=== PATIENT | female | born 1970 | race Caucasian/White ===

== ENCOUNTER 2017-12-17 09:49 | Outpatient (CLI) | payer OTHER | END 2017-12-17 09:50 | disposition home or self-care (01) | LOC: BICMAMMO 09:49 | PROVIDERS: ATTEND Obstetrics & Gynecology | DX: Z12.31 Encounter for screening mammogram for malignant neoplasm of breast (principal); Z85.51 Personal history of malignant neoplasm of bladder | CPT/HCPCS: 77063; 77067 ==

== ENCOUNTER 2018-04-24 11:29 | Outpatient (CLI) | payer OTHER | END 2018-04-24 11:30 | disposition home or self-care (01) | LOC: BICRAD 11:29 | PROVIDERS: ATTEND Urology | DX: N20.0 Calculus of kidney (principal); R35.0 Frequency of micturition; C67.9 Malignant neoplasm of bladder, unspecified | CPT/HCPCS: 36415; 74018; 80048; 81001; 87086 ==

== ENCOUNTER 2018-08-12 15:10 | Outpatient (CLI) | payer OTHER ==
[2018-08-12 16:17] LABS: Hemoglobin 13.5 g/dL (12.0-16.0); Mean Corpuscular HGB CONC 32.5 g/dL (32.0-36.0); Mean Corpuscular Hemoglobin 30.3 pg (27.0-31.0); Mean Platelet Volume 8.2 fL (7.4-10.4); Platelet Count 255 thou/uL (130-400); RBC Distribution Width 11.1 % (11.5-14.5); Red Blood Cell (RBC) Count 4.45 mill/uL (4.20-5.40); White Blood Cell (WBC) Count 5.3 thou/uL (4.8-10.8)
[2018-08-12 16:19] LABS: Bilirubin Negative (Negative); Blood, Urine Small (Negative); Clarity CLEAR (Clear); Glucose, Urine (Dipstick) Negative (Negative); Leukocyte Trace (Negative); Nitrite Negative (Negative); Protein, Urine (Dipstick) Negative (Neg-Trace); Urobilinogen 0.2 mg/dL (0.2-1.0); pH, Urine 7.5 (5.0-9.0)
[2018-08-12 16:22] LABS: Bacteria/HPF None Seen HPF (None Seen); Hyaline Casts/LPF 0-3 HYALINE CAST LPF (0-3 Hyaline); Pathc Cast-AUWi Flag 0.14 (0-2.49); Squamous Epithelial None Seen HPF (0-3); WBC/HPF 0-3 HPF (0-3)
[2018-08-12 16:23] LABS: Specific Gravity, Urine 1.004 (1.002-1.036)
[2018-08-12 16:41] LABS: Anion Gap 11 mmol/L (10-20); BHCG - Serum Negative (NEGATIVE); BUN (Urea Nitrogen) 11 mg/dL (7.0-18.7); Calc. Creatinine Clearance 0 mL/min (70-130); Calcium 9.4 mg/dL (7.8-10.44); Carbon Dioxide 25 mmol/L (22-29); Chloride 108 mmol/L (98-107); Estimated GFR-MDRD Greater than 90; Glucose 89 mg/dL (70-105); Pregs Control Background? CLEAR/WHITE (CLR/WHITE); Pregs Control Bar Appear? YES (CONTROL BAR); Sodium 140 mmol/L (136-145)
[2018-08-12 16:43] LABS: Prothrombin Time 12.9 SEC (12.0-14.7)
[2018-08-12 16:44] LABS: PTT 27.6 SEC (22.9-36.1)
--- NOTE | 2018-08-13 12:37 | EKG ---
Test Reason : Blood Pressure : / mmHG Vent. Rate : 067 BPM Atrial Rate : 067 BPM P-R Int : 124 ms QRS Dur : 074 ms QT Int : 404 ms P-R-T Axes : 078 081 085 degrees QTc Int : 426 ms Normal sinus rhythm Cannot rule out Anterior infarct , age undetermined Abnormal ECG When compared with ECG of 30-JUL-2016 17:56, No significant change was found Confirmed by DR. Luzma MEEHAN ([id number]) on 08/13/2018 12:37:16 PM Referred By: REGAN Confirmed By:DR. Luzma MEEHAN
== END 2018-08-12 15:11 | disposition home or self-care (01) ==
LOC: LABBT 15:10
PROVIDERS: ATTEND Urology
DX: Z01.818 Encounter for other preprocedural examination (principal); N20.0 Calculus of kidney; R94.31 Abnormal electrocardiogram [ECG] [EKG]
CPT/HCPCS: 80048; 81001; 84703; 85027; 85610; 85730; 87086; 93005; 93010

== ENCOUNTER 2018-08-14 12:29 | Outpatient (CLI) | payer OTHER ==
--- NOTE | 2018-08-14 15:01 | CT ---
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 History of prior appen dectomy. This is a CT urogram with and without contrast with multiphase imaging. COMPARISON: 04/12/17. FINDINGS: Visualized lung bases are clear. The liver, gallbladder, pancreas, spleen, and adrenal glands are unremarkable. Several small, nonobst ructing bilateral renal calculi. No evidence for acute obstruction. Normal appearing urinary bladd er. No evidence of residual or recurrent urinary bladder mass. No evidence for pelvic abscess or cha opathy, or significant abnormal fluid collection. IMPRESSION: Multiple nonobstructing bilateral renal calculi. No evidence for acute obstruction. Unremarkable a ppearing urinary bladder. No evidence of residual or recurrent tumor mass. No evidence of adenopathy. No metastasis. POS: [facility]
[2018-08-14] MEDS ORDERED: ISOVUE-370 76%-LOCM 1 ML ONE (16:21)
== END 2018-08-14 12:30 | disposition home or self-care (01) ==
LOC: BICCT 12:29
PROVIDERS: ATTEND Urology
DX: C67.9 Malignant neoplasm of bladder, unspecified (principal); N20.0 Calculus of kidney
CPT/HCPCS: 74178

== ENCOUNTER 2018-08-25 06:42 | Day surgery (SDC) | payer OTHER ==
[2018-08-12 15:29] VITALS: BMI 23.6
[2018-08-25] MEDS ORDERED: Levofloxacin 500 mg/D5W 100 ml Premix Bag ONE (07:15)
[2018-08-25] MEDS ORDERED: Iothalamate Meglumine 60% 50 ML VIAL FS ONE (09:19)
[2018-08-25] MEDS ORDERED: Fentanyl 100 MCG/2 ML VIAL ONE ×2 (09:23→11:34)
--- NOTE | 2018-08-25 11:37 | OP ---
PRIMARY CARE PHYSICIAN: Richard Henderson MD PREOPERATIVE DIAGNOSES: 1. 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 2. History of BCG. 3. Recent cystoscopy negative, cytology positive. Restaging CT hematuria protocol unremarkable. 4. History of bilateral nonobstructing punctate renal lithiasis, left greater than right. POSTOPERATIVE DIAGNOSES: 1. 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 2. History of BCG. 3. Recent cystoscopy negative, cytology positive. Restaging CT hematuria protocol unremarkable. 4. History of bilateral nonobstructing punctate renal lithiasis, left greater than right. PROCEDURES PERFORMED: Cystoscopy; bilateral retrograde pyelogram; bilateral dilation of the intramur al ureter; bilateral ureteroscopy, pyeloscopy, diagnostic; left laser lithotripsy of renal calculi; r andom bladder biopsy; fulguration of biopsy sites. SURGEON: Elissa Scanlon D.O. ANESTHESIA: General. COMPLICATIONS: None apparent. DISPOSITION: To recovery room in stable condition. SPECIMEN: Random bladder biopsy: Left lateral previous TUR site, random bladder biopsy of the left lateral, mi d posterior, right lateral. INTRAOPERATIVE FINDINGS: 1. No cystoscopic evidence of bladder tumor recurrence. 2. Bilateral Corbin plaque consistent with recurrent stones, left punctate renal lithiasis, left st one nidus in the mid lower pole measuring approximately 2-3 mm. INDICATIONS FOR THE PROCEDURE AND HISTORY: Ms. Rea is a pleasant 47-year-old female with histor y of low-grade superficial T1 TCC of the left lateral wall, status post transurethral resection bladd er tumor. She has been undergoing maintenance BCG with no cystoscopic evidence of recurrent bladder cancer. She recently underwent local diagnostic cystoscopy on August 08, demonstrating unremarkable findings, however, FISH cytology positive. Therefore, a restaging CT hematuria protocol obtained wh [facility] demonstrates no evidence of filling defect, hydronephrosis or lesion of concern. She presents to [facility] for diagnostic bilateral pyeloscopy random bladder biopsy. She has concomitant tiny kidney stone s. We also discussed options of laser lithotripsy if it is amendable and she desires to proceed. Ri sks and complications including, but not limited to, bleeding, pain, infection, injury to adjacent or sonja, urosepsis, stricture formation, PE, DVT, perioperative morbidity and mortality. All questions were answered to her satisfaction, and she desired to proceed without reservation. DESCRIPTION OF THE PROCEDURE: After an informed consent is signed, [facility], placed in a dorsal lithotomy position with the genital area prepped and draped in the usual s urgical sterile fashion. Bilateral SARITHA hose, SCDs, and broad-spectrum antibiotics were provided. A 21-Moldovan cystoscope was utilized for cystoscopy which demonstrated normal urethra. Bladder was ente red which demonstrated again no evidence of visible tumor recurrence. Cystoscopy was performed with a 30 and a 70-degree lens. At this time, we performed a left retrograde pyelogram first. This demon strated no evidence of filling defect or hydronephrosis. Using a [employer] balloon dilator 4 cm 12 Moldovan, we dilated the intramural ureter uneventfully. A 10-Moldovan dual-lumen access sheath w as then utilized to intubate the left ureter to the level of the proximal region. A second safety wi re, 0.35 Super Stiff was then passed. A digital disposable flexible ureteroscope was then advanced o sidney the working Super Stiff wire to the level of the renal pelvis uneventfully. We surveyed the jr ecting system which demonstrated no evidence of any papillary lesions of concern along the ureter. N o other calices. Each calyces were evaluated. There were multiple areas of Corbin plaques. There are multiple punctate renal lithiasis in the mid to lower pole based on the renal papilla. There wer e two stones in the mid lower pole approximately 2-3 mm, which were stuck to the renal papilla. This was rendered laser free with 200 micron laser fiber and laser lithotripsy. They fragmented a couple of tiny pieces. They were too small to basket. More over in the lower angle, the angle was difficu lt to engage for basket extract. Moreover, the stones were small. Therefore, left in situ. We surv eyed the rest of the collecting system carefully again demonstrating no evidence of lesion of concern . Nothing to be biopsied. The ureter was surveyed repeatedly again demonstrating no lesion, no ston e of concern or trauma. At this time, we passed a 6 x 28 double-J ureteral stent after the safety wi re was removed. The stent was confirmed to be in good position. We then repeated this on the right side, she did not have stones amendable to be treated. Therefore, no laser lithotripsy in the right renal collecting system was performed a diagnostic ureteroscopy, pyeloscopy after balloon dilatation of the right distal intramural ureter was performed in a similar fashion. This again demonstrated no evidence of lesion of concern. A 6 x 28 double-J ureteral stent was placed in the right side. Blad barb was completely emptied. I again staged the bladder. With the stent in situ, we performed random bladder biopsy. She does have a previous TUR site at the left lateral wall with no visible recurren ce. The bed of the tumor was biopsied. Then, we performed 3 random bladder biopsies, left lateral, mid posterior, right lateral. Biopsy was performed with endoscopic biopsy cup, using an endoscopic B ugbee, we cauterized the bed of the lesion with good hemostasis. She tolerated the procedure well. No Beal was left in situ. She tolerated the procedure well and transported to the recovery room in stable condition. She will see me next for cystoscopy stent pull and review of pathology. If biopsy negative, she will resume her maintenance BCG. She is discharged with ciprofloxacin for 5 days, one to be taken prior to her stent pull, Rhonda [place] 5/325 #30, AZO p.r.n., Ditropan 10 mg XL one p.o. daily #20. Appointment provided for September 04, at 8:00 a.m.
[2018-08-25] MEDS ORDERED: Phenazopyridine HCl 97.5 MG TABLET ONE (11:43)
[2018-08-25] MEDS ORDERED: Oxybutynin 5 MG TAB ONE (11:43)
[2018-08-25] MEDS ORDERED: Promethazine HCl 25 MG/ML VIAL ONE (12:42)
--- NOTE | 2018-08-25 13:11 | RAD ---
RETROGRADE IVP: HISTORY: Renals tone. COMPARISON: 08/13/2016 FINDINGS: Fluoroscopy was provided for Dr. Scanlon. A total of 6 fluoroscopic images demonstrate retrograd e opacification of a left to right intrarenal collecting system. No filling defects. Bilateral uret eral stents are placed. IMPRESSION: Fluoroscopy as above. POS: [facility]
[2018-08-25] MEDS ORDERED: Dexamethasone 20 MG/5 ML VIAL ONE (15:07)
[2018-08-25] MEDS ORDERED: PROPOFOL 200 MG/20 ML VIAL ONE (15:07)
[2018-08-25] MEDS ORDERED: Glycopyrrolate 0.2 MG/ML 5 ML SYRINGE ONE (15:07)
[2018-08-25] MEDS ORDERED: Metoclopramide HCl 10 MG/2 ML VIAL ONE (15:07)
[2018-08-25] MEDS ORDERED: Lidocaine 1% PF 5 ML VIAL ONE (15:07)
[2018-08-25] MEDS ORDERED: Ondansetron PF 4 MG/2 ML Vial ONE (15:07)
== END 2018-08-25 14:11 | disposition home or self-care (01) ==
LOC: SDC 06:42
PROVIDERS: ATTEND Urology
PROC: 0T788DZ Dilation of Bilateral Ureters with Intraluminal Device, Via Natural or Artificial Opening Endoscopic (ICD-10-PCS; principal; 2018-08-25)
PROC: 0TBB8ZX Excision of Bladder, Via Natural or Artificial Opening Endoscopic, Diagnostic (ICD-10-PCS; principal; 2018-08-25)
PROC: 0TF48ZZ Fragmentation in Left Kidney Pelvis, Via Natural or Artificial Opening Endoscopic (ICD-10-PCS; principal; 2018-08-25)
DX: N20.0 Calculus of kidney (principal); N30.20 Other chronic cystitis without hematuria; G43.909 Migraine, unspecified, not intractable, without status migrainosus; Z85.51 Personal history of malignant neoplasm of bladder; Z79.899 Other long term (current) drug therapy; Z88.6 Allergy status to analgesic agent; Z88.8 Allergy status to other drugs, medicaments and biological substances; Z91.048 Other nonmedicinal substance allergy status
CPT/HCPCS: 74420; 88305; 96374; C1758; C1769; J1100; J1956; J2001; J2405; J2550; J2704; J2765; J3010; Q9961

== ENCOUNTER 2018-12-18 08:48 | Outpatient (CLI) | payer OTHER ==
--- NOTE | 2018-12-18 18:22 | MMO ---
Bilateral MAMMO Bilat Screen DDI+DONN. CLINICAL HISTORY: Patient is 48 years old and is seen for screening. The patient has no family history of breast cancer. The patient has a history of bladder cancer in May,. VIEWS: The views performed were: bilateral craniocaudal with tomosynthesis and bilateral mediolateral oblique with tomosynthesis. FILMS COMPARED: The present examination has been compared to prior imaging studies performed at [facility] on 08/05/2009, 10/27/2015, 11/15/2016 and 12/17/2017. MAMMOGRAM FINDINGS: The breasts are heterogeneously dense, which could obscure a lesion on mammography. There are no suspicious masses, calcifications or areas of architectural distortion. IMPRESSION: THERE IS NO MAMMOGRAPHIC EVIDENCE OF MALIGNANCY. A ROUTINE FOLLOW-UP MAMMOGRAM IN 1 YEAR IS RECOMMENDED. THE RESULTS OF THIS EXAM WERE SENT TO THE PATIENT. ACR BI-RADS Category 1 - Negative MAMMOGRAPHY NOTE: 1. A negative mammogram report should not delay a biopsy if a dominant of clinically suspicious mass is present. 2. Approximately 10% to 15% of breast cancers are not detected by mammography. 3. Adenosis and dense breasts may obscure an underlying neoplasm.
== END 2018-12-18 08:49 | disposition home or self-care (01) ==
LOC: BICMAMMO 08:48
PROVIDERS: ATTEND Obstetrics & Gynecology
DX: Z12.31 Encounter for screening mammogram for malignant neoplasm of breast (principal); Z85.51 Personal history of malignant neoplasm of bladder
CPT/HCPCS: 77063; 77067

== ENCOUNTER 2019-05-07 10:01 | Outpatient (CLI) | payer OTHER ==
--- NOTE | 2019-05-07 12:38 | RAD ---
KUB: Comparison: None. History: Renal stone, bladder cancer. FINDINGS: Single view of the abdomen shows a nonspecific, nonobstructed bowel gas pattern. No calcifications ar e seen projecting over the right renal shadow. There is a tiny 1-2 mm calculus projecting over the lo wer pole of the left kidney. No calcifications are seen along the course of the ureters. IMPRESSION: Very small left renal calcification. POS: [facility]
== END 2019-05-07 10:02 | disposition home or self-care (01) ==
LOC: RAD 10:01
PROVIDERS: ATTEND Urology
DX: N20.0 Calculus of kidney (principal); N28.89 Other specified disorders of kidney and ureter; C67.9 Malignant neoplasm of bladder, unspecified; R35.0 Frequency of micturition
CPT/HCPCS: 36415; 74018; 80048; 81001; 87086; 88121

== ENCOUNTER 2019-05-20 14:40 | Outpatient (CLI) | payer OTHER ==
--- NOTE | 2019-05-20 15:50 | CT ---
CT ABDOMEN AND PELVIS WITH AND WITHOUT IV CONTRAST 05/20/2019 CLINICAL INFORMATION: Transitional cell cancer urinary bladder. History of prior surgery. COMPARISON: 08/14/2018 Technique: Multiple contiguous axial CT images are obtained through the abdomen and pelvis with IV contrast. Cor onal reformatted images are provided. FINDINGS: Lower Chest: Dependent atelectasis. No pulmonary nodule, mass, or pleural effusion is seen in either lung base. Vessels: Abdominal aorta is normal in caliber. Incidental note is made of a retroaortic left renal ve in. Abdomen: Portal vein:Patent Gallbladder: Within normal limits for CT imaging. Liver: within normal limits. Spleen: within normal limits. Pancreas: within normal limits. Adrenals: within normal limits. Kidneys: Punctate nonobstructing bilateral renal calculi are seen larger in size on the left measurin g up to 3 mm. There is no hydronephrosis, and no enhancing renal mass is identified. No obvious filling defect is seen within the renal collecting systems. The segmentally visualized opacified uret ers also demonstrate no filling defect. Bowel: Normal caliber. Appendix: Not definitely visualized. Peritoneum: No ascites or free air; no fluid collection. Mesentery and Retroperitoneum: No enlarged mesenteric or retroperitoneal lymph nodes. Abdominal Wall: Tiny fat-containing umbilical hernia is present. Pelvis: Reproductive Organs: No pelvic masses. Pelvis within normal limits. Bladder: within normal limits. Bones: within normal limits. IMPRESSION: 1. Nonobstructing bilateral renal calculi stable from prior study. 2. No CT findings to suggest metastatic disease. 3. No acute findings are seen in the abdomen or pelvis.
== END 2019-05-20 14:41 | disposition home or self-care (01) ==
LOC: BICCT 14:40
PROVIDERS: ATTEND Urology
DX: C67.9 Malignant neoplasm of bladder, unspecified (principal); N20.0 Calculus of kidney
CPT/HCPCS: 74178

== ENCOUNTER 2021-10-09 07:52 | Outpatient (CLI) | payer BC | END 2021-10-09 07:53 | disposition home or self-care (01) | LOC: BICCT 07:52 | PROVIDERS: ATTEND Urology | DX: C67.9 Malignant neoplasm of bladder, unspecified (principal); N20.0 Calculus of kidney | CPT/HCPCS: 74178 ==

== ENCOUNTER 2021-10-27 16:42 | Outpatient (CLI) | payer BC ==
[2021-10-27 18:15] LABS: Hemoglobin 13.3 g/dL (12.0-15.5); Mean Corpuscular HGB CONC 32.9 g/dL (32.0-36.0); Mean Corpuscular Hemoglobin 30.2 pg (27.0-33.0); Mean Corpuscular Volume 91.8 fl (81.6-98.3); Mean Platelet Volume 11.5 fl (7.4-10.4); Platelet Count 322 10x3/uL (150-450); RBC Distribution Width 12.6 % (11.5-14.5); White Blood Cell (WBC) Count 7.2 10x3/uL (3.5-10.5)
[2021-10-27 18:32] LABS: INR-International Normal Ratio 0.9; PTT 24.8 sec (22.0-33.0); Prothrombin Time 9.9 sec (9.5-12.1)
[2021-10-27 18:38] LABS: Anion Gap 17 mmol/L (10-20); BUN (Urea Nitrogen) 11 mg/dL (7.0-18.7); Calc. Creatinine Clearance 0 mL/min (70-130); Calcium 9.4 mg/dL (7.8-10.44); Carbon Dioxide 22 mmol/L (22-29); Chloride 106 mmol/L (98-107); Glucose 72 mg/dL (70-105); Potassium 3.5 mmol/L (3.5-5.1); Sodium 141 mmol/L (136-145)
[2021-10-28 18:33] LABS: SARS-CoV-2 PCR by NAA DETECTED (NotDetected)
== END 2021-10-27 16:43 | disposition home or self-care (01) ==
LOC: LABBT 16:42
PROVIDERS: ATTEND Urology
DX: U07.1 COVID-19 (principal); Z01.818 Encounter for other preprocedural examination
CPT/HCPCS: 80048; 85027; 85610; 85730; 93005; 93010; U0003; U0005

== ENCOUNTER 2021-12-08 16:49 | Outpatient (CLI) | payer BC ==
[2021-12-08 18:35] LABS: Hemoglobin 13.5 g/dL (12.0-15.5); Mean Corpuscular HGB CONC 31.9 g/dL (32.0-36.0); Mean Corpuscular Hemoglobin 30.1 pg (27.0-33.0); Mean Corpuscular Volume 94.2 fl (81.6-98.3); Mean Platelet Volume 11.8 fl (7.4-10.4); Platelet Count 299 10x3/uL (150-450); RBC Distribution Width 13.2 % (11.5-14.5); Red Blood Cell (RBC) Count 4.49 10x6/uL (3.90-5.03); White Blood Cell (WBC) Count 8.4 10x3/uL (3.5-10.5)
[2021-12-08 18:52] LABS: INR-International Normal Ratio 0.9; PTT 24.5 sec (22.0-33.0); Prothrombin Time 9.9 sec (9.5-12.1)
[2021-12-08 18:53] LABS: Anion Gap 17 mmol/L (10-20); BUN (Urea Nitrogen) 14 mg/dL (7.0-18.7); Calc. Creatinine Clearance 0 mL/min (70-130); Calcium 9.4 mg/dL (7.8-10.44); Carbon Dioxide 25 mmol/L (22-29); Chloride 103 mmol/L (98-107); Glucose 71 mg/dL (70-105); Potassium 3.7 mmol/L (3.5-5.1); Sodium 141 mmol/L (136-145)
== END 2021-12-08 16:50 | disposition home or self-care (01) ==
LOC: LABBT 16:49
PROVIDERS: ATTEND Urology
DX: Z01.818 Encounter for other preprocedural examination (principal); C67.9 Malignant neoplasm of bladder, unspecified; N20.0 Calculus of kidney; N80.9 Endometriosis, unspecified; R35.0 Frequency of micturition
CPT/HCPCS: 80048; 85027; 85610; 85730; 93005; 93010

== ENCOUNTER 2022-12-17 07:57 | Outpatient (CLI) | payer BC ==
[2022-12-17] MEDS ORDERED: Iopamidol-370 76% 500 ML 1 ML ONE (11:00)
== END 2022-12-17 07:58 | disposition home or self-care (01) ==
LOC: BICCT 07:57
PROVIDERS: ATTEND Urology
DX: C67.9 Malignant neoplasm of bladder, unspecified (principal); N20.0 Calculus of kidney
CPT/HCPCS: 74178

== ENCOUNTER 2022-12-27 11:15 | Outpatient (CLI) | payer BC ==
[2022-12-27 12:33] LABS: Hemoglobin 13.9 g/dL (12.0-15.5); Mean Corpuscular HGB CONC 32.3 g/dL (32.0-36.0); Mean Corpuscular Hemoglobin 29.6 pg (27.0-33.0); Mean Corpuscular Volume 91.7 fl (81.6-98.3); Mean Platelet Volume 10.8 fl (7.4-10.4); Platelet Count 281 10x3/uL (150-450); RBC Distribution Width 12.7 % (11.5-14.5); White Blood Cell (WBC) Count 7.8 10x3/uL (3.5-10.5)
[2022-12-27 12:47] LABS: INR-International Normal Ratio 0.9; PTT 25.9 sec (22.0-33.0); Prothrombin Time 9.8 sec (9.5-12.1)
[2022-12-27 12:49] LABS: Anion Gap 19 mmol/L (10-20); BUN (Urea Nitrogen) 11 mg/dL (7.0-18.7); Calc. Creatinine Clearance 0 mL/min (70-130); Calcium 9.5 mg/dL (7.8-10.44); Carbon Dioxide 22 mmol/L (22-29); Chloride 104 mmol/L (98-107); Estimated GFR 102; Glucose 79 mg/dL (70-105); Potassium 3.5 mmol/L (3.5-5.1); Sodium 141 mmol/L (136-145)
[2022-12-27 12:53] LABS: Bilirubin Neg (Negative); Blood, Urine 150 (Negative); Clarity Clear (Clear); Glucose, Urine (Dipstick) Normal (Negative); Ketone, Urine Negative (Negative); Leukocyte Negative (Negative); Nitrite Negative (Negative); Protein, Urine (Dipstick) 15 mg/dl (Neg-Trace); Specific Gravity, Urine 1.005 (1.005-1.030); Urobilinogen Normal mg/dL (Less than 2)
[2022-12-27 12:57] LABS: BHCG - Serum Negative (NEGATIVE); Pregs Control Background? CLEAR/WHITE (CLR/WHITE); Pregs Control Bar Appear? YES (CONTROL BAR)
[2022-12-27 13:05] LABS: Squamous Epithelial 0-3 HPF (0-3); WBC/HPF 0-3 HPF (0-3)
[2022-12-27 13:06] LABS: Bacteria/HPF None Seen HPF (None Seen)
== END 2022-12-27 11:16 | disposition home or self-care (01) ==
LOC: LABBT 11:15
PROVIDERS: ATTEND Urology
DX: Z01.818 Encounter for other preprocedural examination (principal); C67.9 Malignant neoplasm of bladder, unspecified; N20.0 Calculus of kidney; D21.9 Benign neoplasm of connective and other soft tissue, unspecified; R35.0 Frequency of micturition; N80.9 Endometriosis, unspecified
CPT/HCPCS: 80048; 81001; 84703; 85027; 85610; 85730; 87086; 93005; 93010

== ENCOUNTER 2023-01-09 06:23 | Day surgery (SDC) | payer BC ==
[2023-01-08 11:14] VITALS: BMI 27.4
[2023-01-09] MEDS ORDERED: mitoMYcin 40 MG in Sodium Chloride 0.9% 40 ML I-VESIC SCH (07:15)
[2023-01-09] MEDS ORDERED: Levofloxacin 500 mg/D5W 100 ml Premix Bag ONE (08:22)
[2023-01-09] MEDS ORDERED: fentaNYL 50 mcg/mL 1 mL Vial ONE ×2 (09:09)
[2023-01-09] MEDS ORDERED: Famotidine/PF 20 mg/2ml Vial ONE (09:09)
[2023-01-09] MEDS ORDERED: Metoclopramide HCl 10 MG/2 ML VIAL ONE (09:24)
[2023-01-09] MEDS ORDERED: GLYCOPYRROLATE/PF 0.2 MG/ML VIAL ONE (09:24)
[2023-01-09] MEDS ORDERED: Rocuronium Bromide 10 MG/ML (10ML VIAL) ONE (09:24)
[2023-01-09] MEDS ORDERED: PROPOFOL 200 MG/20 ML VIAL ONE (09:24)
[2023-01-09] MEDS ORDERED: Ondansetron PF 4 MG/2 ML Vial ONE (09:24)
[2023-01-09] MEDS ORDERED: NEOSTIGMINE 3 MG/3 ML SYR 3 MG/3 ML SYRINGE ONE (09:24)
[2023-01-09] MEDS ORDERED: Dexamethasone 20 MG/5 ML VIAL ONE (09:24)
[2023-01-09] MEDS ORDERED: Lidocaine 1% PF 5 ML VIAL ONE (09:24)
[2023-01-09] MEDS ORDERED: Phenazopyridine HCl 100 MG TAB ONE (10:48)
[2023-01-09] MEDS ORDERED: Oxybutynin 5 MG TAB ONE (10:48)
== END 2023-01-09 14:21 | disposition home or self-care (01) ==
LOC: SDC 06:23
PROVIDERS: ATTEND Urology
PROC: 0TBB8ZZ Excision of Bladder, Via Natural or Artificial Opening Endoscopic (ICD-10-PCS; principal; 2023-01-09)
PROC: 3E0K805 Introduction of Other Antineoplastic into Genitourinary Tract, Via Natural or Artificial Opening Endoscopic (ICD-10-PCS; principal; 2023-01-09)
DX: D30.3 Benign neoplasm of bladder (principal); N20.0 Calculus of kidney; N95.2 Postmenopausal atrophic vaginitis; G43.709 Chronic migraine without aura, not intractable, without status migrainosus; Z85.51 Personal history of malignant neoplasm of bladder; Z79.3 Long term (current) use of hormonal contraceptives; Z79.899 Other long term (current) drug therapy; Z88.6 Allergy status to analgesic agent; Z88.8 Allergy status to other drugs, medicaments and biological substances; Z91.048 Other nonmedicinal substance allergy status
CPT/HCPCS: 86850; 86900; 86901; 88305; J1100; J1956; J2405; J2704; J2765; J3010; J3490; J9280; S0028

== ENCOUNTER 2023-06-05 15:21 | Outpatient (CLI) | payer BC | END 2023-06-05 15:22 | disposition home or self-care (01) | LOC: BICMAMMO 15:21 | PROVIDERS: ATTEND Obstetrics & Gynecology | DX: Z12.31 Encounter for screening mammogram for malignant neoplasm of breast (principal); Z85.51 Personal history of malignant neoplasm of bladder | CPT/HCPCS: 77063; 77067 ==

== ENCOUNTER 2024-03-05 07:43 | Outpatient (CLI) | payer BC | END 2024-03-05 07:44 | disposition home or self-care (01) | LOC: BICCT 07:43 | PROVIDERS: ATTEND Urology | DX: C67.9 Malignant neoplasm of bladder, unspecified (principal); N20.0 Calculus of kidney; D25.9 Leiomyoma of uterus, unspecified | CPT/HCPCS: 74178; 82565 ==